=== PATIENT | male | born 1960 | race Caucasian/White ===

== ENCOUNTER → 2021-08-07 | Day surgery (SDC) | payer OTHER ==
[~2021-08-07] VITALS: Ht 175.3 cm; Wt 89.1 kg
[~2021-08-07] MED LIST: ARNUITY ELLIP200 MCG; CELEBREX **OUT100 MG PO; CELEXA20 MG PO; CLARITIN10 MG PO; FLOMAX 0.4 MG0.4 MG PO; K-DUR20 MEQ PO; MONTELUKAST SOD10 MG PO; NASAL SPRAY30 M1; NEURONTIN100 MG PO; OXYCONTIN 10MG10 MG PO; PERCOCET 7.5/321 TAB PO; PRILOSEC20 MG PO; VENTOLIN HFA IN18 GM INH; VITAMIN D-32000 UNI1 PO; [UNRECOGNIZED DRUG - OTHER] PO
[2021-08-07 09:15] LABS: HCT 41.1 % (42.0-52.0); HGB 13.8 g/dl (13.2-18.0); MCH 31.6 pg (25.0-31.0); MCHC 33.6 g/dL (32.0-36.0); MCV 94.1 fL (78.0-100.0); MPV 10.1 fL (6.0-9.5); RBC 4.37 M/uL (4.70-6.00); RDW 13.2 % (11.5-14.0); WBC 8.7 K/uL (4.0-10.5)
[2021-08-07 09:48] LABS: ALBUMIN 3.3 g/dL (3.4-5.0); BILIRUBIN - TOTAL 0.4 mg/dL (0.2-1.0); BUN/CREAT RATIO (CALC) 11.2 RATIO; CREATININE 0.98 mg/dL (0.67-1.17); GLOBULIN (CALCULATION) 3.6 g/dL; POTASSIUM 3.9 mmol/L (3.5-5.1); TOTAL PROTEIN 6.9 g/dL (6.4-8.2)
== END | disposition home or self-care (01) ==
LOC: FAS 08:12
PROVIDERS: Surgery
DX: K29.50 Unspecified chronic gastritis without bleeding (principal); K21.00 Gastro-esophageal reflux disease with esophagitis, without bleeding; B96.81 Helicobacter pylori [H. pylori] as the cause of diseases classified elsewhere; F32.A Depression, unspecified; F17.290 Nicotine dependence, other tobacco product, uncomplicated; Z88.5 Allergy status to narcotic agent; Z88.0 Allergy status to penicillin; Z88.8 Allergy status to other drugs, medicaments and biological substances; Z79.899 Other long term (current) drug therapy
CPT/HCPCS: 36415; 80053; J2704; J7120